=== PATIENT | female | born 1970 | race Caucasian/White ===

== ENCOUNTER 2018-03-01 15:30 | Emergency (ER) | payer BC, OTHER ==
[~2018-03-01 15:30] MED LIST: LOR5 PO; TRIA1CAP81 PO
--- NOTE | 2018-03-01 15:41 | ER Report ---
History and Physical Time Seen By MD: 15:41 Hx. of Stated Complaint: PATIENT REPORTS SHORTNESS OF BREATH AND RAPID HEART RATE FOR THE LAST 2 HOURS. HPI/ROS CHIEF COMPLAINT: Chest pressure and rapid heart rate HISTORY OF PRESENT ILLNESS: This is a 47 year old female. She had the onset of some chest pressure and feeling like her heart was racing. This started about 2 hours ago. Started while sitting at her desk at work. Has no had this same type of thing once, but happened years ago. Has been told that she has mitral valve prolapse in the past, but no problems with this since and no other heart problems. She is not short of breath at this time. Still feeling the chest pressure. No fevers or chills, but has had a mild cough. No abdominal pain. No problems with bowel or bladder function. Nothing that is overly stressing her, but she does question whether something like this can be due to anxiety. No history of pulmonary problems. No history of blood clots in the past. No new medicines or supplements. No unusual foods, activities, exposures. REVIEW OF SYSTEMS: Constitutional: As above Eyes: No vision changes. ENT: No sore throat. No congestion. Cardiovascular: As above. Respiratory: As above. Gastrointestinal: No abdominal pain. No nausea or vomiting. Genitourinary: No dysuria. No frequency Musculoskeletal: No back pain. No extremity pain. Skin: No rashes. Neurological: No numbness. No dizziness. No headache. Allergies: Coded Allergies: Shellfish (Verified Allergy, Mild, RASH/ITCHING, 06/24/08) Home Meds Discontinued Reported Medications Acetaminophen/Hydrocodone (Lortab 5/500) 5 Mg/500 Mg Tab, 1 EA PO Q4-6H, #30 1-2 TABLETS 06/24/08 Triamterene/Hctz (Dyazide 37.5-25 Capsule) 1 Cap Capsule, 1 CAP PO QDAY 06/24/08 Past Medical/Surgical History History of mitral valve prolapse, appendectomy, tonsillectomy Reviewed Nurses Notes: Yes Hx Substance Use Disorder: No Hx Alcohol Use: No Constitutional Vital Sign - Last 24 Hours 03/01/18 03/01/18 03/01/18 03/01/18 15:33 15:33 16:00 16:13 Temp 97.6 Pulse 64 66 Resp 20 11 B/P (MAP) 137/85 (102) 137/85 114/86 (95) Pulse Ox 95 O2 Delivery Room Air 03/01/18 03/01/18 16:30 17:00 Pulse 55 57 Resp 12 16 Physical Exam General Appearance: The patient is alert. No acute distress, but very anxious. Eyes: Pupils are equal, round. No pallor, injection or icterus. ENT: Mucous membranes are moist. Normal oral mucosa. Posterior oropharynx is normal. Neck: Supple and non tender. No lymphadenopathy. Respiratory: Breathing easily and unlabored. Lungs are clear to auscultation. Cardiovascular: Regular rate and rhythm. No murmurs, gallops or rubs. Normal capillary refill. No edema. Gastrointestinal: Abdomen is soft and non tender. Nondistended. Normal active bowel sounds. No CVA tenderness with percussion. Neurological: Alert and oriented x3. No focal neurologic deficits Skin: Warm and dry. Musculoskeletal: Extremities are nontender. No tenderness in palpation of the cervical, thoracic and lumbar spine. DIFFERENTIAL DIAGNOSIS: After history and physical exam, differential diagnosis was considered for patient with chest pressure and feeling of tachycardia, vital signs are normal at this time with normal pulse, heart rhythm, and oxygen saturations. We will look for pulmonary, cardiac, blood clots, and other causes of chest pressure and tachycardia. Would consider changes related to her prior mitral valve prolapse in the past as well. Medical Decision Making Data Points Result Diagram: 03/01/18 1548 03/01/18 1548 Laboratory Hematology Test 03/01/18 15:48 Red Blood Count 4.73 M/uL (4.17-5.56) Mean Corpuscular Volume 85.4 fL (80.0-96.0) Mean Corpuscular Hemoglobin 29.1 pg (26.0-33.0) Mean Corpuscular Hemoglobin Concent 34.1 g/dL (32.0-36.0) Red Cell Distribution Width 14.7 % (11.5-14.5) Mean Platelet Volume 8.6 fL (7.2-11.1) Neutrophils (%) (Auto) 65.7 % (39.4-72.5) Lymphocytes (%) (Auto) 25.9 % (17.6-49.6) Monocytes (%) (Auto) 6.7 % (4.1-12.4) Eosinophils (%) (Auto) 1.2 % (0.4-6.7) Basophils (%) (Auto) 0.5 % (0.3-1.4) Nucleated RBC Relative Count (auto) 0.0 /100WBC Neutrophils # (Auto) 5.0 K/uL (2.0-7.4) Lymphocytes # (Auto) 2.0 K/uL (1.3-3.6) Monocytes # (Auto) 0.5 K/uL (0.3-1.0) Eosinophils # (Auto) 0.1 K/uL (0.0-0.5) Basophils # (Auto) 0.0 K/uL (0.0-0.1) Nucleated RBC Absolute Count (auto) 0.00 K/uL D-Dimer Quantitative (PE/DVT) 0.36 ug/ml (0-0.50) Sodium Level 138 mmol/L (137-145) Potassium Level 3.9 mmol/L (3.5-5.0) Chloride Level 104 mmol/L (98-107) Carbon Dioxide Level 22 mmol/L (22-31) Blood Urea Nitrogen 20 mg/dl (7-18) Creatinine 0.70 mg/dl (0.52-1.04) Glomerular Filtration Rate Calc > 60.0 Random Glucose 105 mg/dl (75-110) Calcium Level 9.0 mg/dl (8.4-10.2) Total Bilirubin 0.2 mg/dl (0.2-1.3) Aspartate Amino Transf (AST/SGOT) 22 U/L (0-35) Alanine Aminotransferase (ALT/SGPT) 19 U/L (0-56) Alkaline Phosphatase 99 U/L (0-126) Troponin I < 0.012 ng/ml C-Reactive Protein 0.9 mg/dl (<1.0) B-Type Natriuretic Peptide 14 pg/ml (0-100) Total Protein 6.9 gm/dl (6.3-8.2) Albumin 4.0 g/dl (3.5-5.0) Chemistry Test 03/01/18 15:48 White Blood Count 7.6 k/uL (4.5-11.0) Red Blood Count 4.73 M/uL (4.17-5.56) Hemoglobin 13.8 g/dL (12.0-16.0) Hematocrit 40.4 % (34.0-47.0) Mean Corpuscular Volume 85.4 fL (80.0-96.0) Mean Corpuscular Hemoglobin 29.1 pg (26.0-33.0) Mean Corpuscular Hemoglobin Concent 34.1 g/dL (32.0-36.0) Red Cell Distribution Width 14.7 % (11.5-14.5) Platelet Count 242 K/uL (150-450) Mean Platelet Volume 8.6 fL (7.2-11.1) Neutrophils (%) (Auto) 65.7 % (39.4-72.5) Lymphocytes (%) (Auto) 25.9 % (17.6-49.6) Monocytes (%) (Auto) 6.7 % (4.1-12.4) Eosinophils (%) (Auto) 1.2 % (0.4-6.7) Basophils (%) (Auto) 0.5 % (0.3-1.4) Nucleated RBC Relative Count (auto) 0.0 /100WBC Neutrophils # (Auto) 5.0 K/uL (2.0-7.4) Lymphocytes # (Auto) 2.0 K/uL (1.3-3.6) Monocytes # (Auto) 0.5 K/uL (0.3-1.0) Eosinophils # (Auto) 0.1 K/uL (0.0-0.5) Basophils # (Auto) 0.0 K/uL (0.0-0.1) Nucleated RBC Absolute Count (auto) 0.00 K/uL D-Dimer Quantitative (PE/DVT) 0.36 ug/ml (0-0.50) Glomerular Filtration Rate Calc > 60.0 Calcium Level 9.0 mg/dl (8.4-10.2) Total Bilirubin 0.2 mg/dl (0.2-1.3) Aspartate Amino Transf (AST/SGOT) 22 U/L (0-35) Alanine Aminotransferase (ALT/SGPT) 19 U/L (0-56) Alkaline Phosphatase 99 U/L (0-126) Troponin I < 0.012 ng/ml C-Reactive Protein 0.9 mg/dl (<1.0) B-Type Natriuretic Peptide 14 pg/ml (0-100) Total Protein 6.9 gm/dl (6.3-8.2) Albumin 4.0 g/dl (3.5-5.0) Coagulation Test 03/01/18 15:48 D-Dimer Quantitative (PE/DVT) 0.36 ug/ml EKG/Imaging EKG Interpretation 12 lead EKG: Rhythm: normal sinus rhythm, rate 67 Cummings: normal QRS: normal ST segments: Nonspecific Imaging Exam type: CHEST PA AND LAT History: palpitations, chest pressure Comparison: May 20, 2010. Findings: The lungs are free of acute effusions, infiltrates or edema. Cardiac silhouette is normal in size. The trachea is in midline. There is no evidence of a pneumothorax or pneumomediastinum. IMPRESSION: 1. No acute cardiac pulmonary process is seen Report Dictated By: Jyothi Daugherty MD at 03/01/2018 4:47 PM ED Course/Re-evaluation Clinical Indication for ER IV: IV Access ED Course Labs, EKG, and imaging negative. Other than elevated BUN/creatinine ratio. Recommended Holter monitor, echocardiogram, and follow-up with cardiology given her history of mitral valve prolapse. Decision to Disposition Date: March 01, 2018 Decision to Disposition Time: 17:22 Depart Departure Latest Vital Signs Vital Signs Date Time Temp Pulse Resp B/P (MAP) Pulse Ox O2 Delivery O2 Flow Rate FiO2 03/01/18 17:00 57 16 03/01/18 16:13 114/86 (95) 03/01/18 15:33 97.6 95 Room Air Impression: Primary Impression: Chest pressure Additional Impression: H/O mitral valve prolapse Condition: Improved Disposition: HOME OR SELF-CARE New Scripts No Active Prescriptions or Reported Meds Patient Instructions: Chest Pain (ED) Additional Instructions: Labs, EKG and imaging looked okay today. We would recommend follow-up with cardiology for further evaluation given you history of mitral valve prolapse in the past. We will get you set up for a 48 hour Holter monitor. We also suggest getting an echocardiogram as well. The only change in your labs was an elevated BUN which is most likely due to some mild dehydration and we recommend increasing your fluid intake. Problem Qualifiers SALOMÓN NICHOLS MD March 01, 2018 15:41
--- NOTE | 2018-03-01 15:52 | EKG ---
FACILITY: [facility] PATIENT NAME: SHAVONNE SHAIKH : [id number] MR: [id number] V: [id number] EXAM DATE: ORDERING PHYSICIAN: SALOMÓN NICHOLS TECHNOLOGIST: David Torres Reason : Blood Pressure : / mmHG Vent. Rate : 067 BPM Atrial Rate : 067 BPM P-R Int : 130 ms QRS Dur : 084 ms QT Int : 412 ms P-R-T Axes : 024 031 036 degrees QTc Int : 435 ms Normal sinus rhythm Anterolateral infarct , age undetermined Abnormal ECG No previous ECGs available Referred By: Confirmed By:
[2018-03-01] MEDS ORDERED: ASPIRIN 81 MG CHEW PO ONE (15:55)
[2018-03-01 16:06] LABS: PLATELET COUNT, AUTOMATED 242 K/uL (150-450)
[2018-03-01 16:13] VITALS: BP 114/86
--- NOTE | 2018-03-01 16:52 | RADIOLOGY IMAGING REPORT ---
FACILITY: [facility] - [place] PATIENT NAME: Maria Kelly : 1970 MR: [id number] V: [id number] EXAM DATE: ORDERING PHYSICIAN: SALOMÓN NICHOLS TECHNOLOGIST: Location: Patient: Maria Kelly : 1970 Visit/Account:[id number] Date of Sevice: 03/01/2018 Exam type: CHEST PA AND LAT History: palpitations, chest pressure Comparison: May 20, 2010. Findings: The lungs are free of acute effusions, infiltrates or edema. Cardiac silhouette is normal in size. The trachea is in midline. There is no evidence of a pneumothorax or pneumomediastinum. IMPRESSION: 1. No acute cardiac pulmonary process is seen Report Dictated By: Jyothi Daugherty MD at 03/01/2018 4:47 PM Report E-Signed By: Jyothi Daugherty MD at 03/01/2018 4:48 PM WSN:[email or web address]
== END 2018-03-01 17:40 | disposition home or self-care (01) ==
LOC: ER 15:37
DX: R07.89 Other chest pain (principal); R94.31 Abnormal electrocardiogram [ECG] [EKG]
CPT/HCPCS: 71046; 82040; 82247; 82310; 82374; 82435; 82565; 82947; 83880; 84075; 84132; 84155; 84295; 84450; 84460; 84484; 84520; 85025; 85379; 86140; 93005; 99284

== ENCOUNTER 2018-08-12 16:48 | Emergency (ER) | payer OTHER | END 2018-08-12 17:22 | disposition left against medical advice (07) | LOC: ER 16:56 | DX: Z02.9 Encounter for administrative examinations, unspecified (principal) ==